=== PATIENT | male | born 1985 | race Two or more races ===

== ENCOUNTER 2016-12-17 17:05 | Emergency (ER) | payer OTHER ==
[~2016-12-17] VITALS: Ht 180.3 cm; Wt 83.1 kg
[2016-12-17 17:07] VITALS: BP 113/72
[2016-12-17] MEDS ORDERED: LIDOCAINE 1%-EPI 1:100K, 30ML ONE (17:45)
[2016-12-17] MEDS ORDERED: DIPH,PERTUSS(ACELL),TET VAC/PF 0.5 ML IM-VACC ONE ×2 (17:50→18:00)
[2016-12-17] MEDS ORDERED: LIDOCAINE 1%, 20ML SQ ONE (18:00)
[2016-12-17] MEDS ORDERED: LIDOCAINE 1%-EPI 1:100K, 20ML SQ ONE (18:00)
== END 2016-12-17 19:30 | disposition home or self-care (01) ==
LOC: ED 18:58
DX: S01.511A Laceration without foreign body of lip, initial encounter (principal); W25.XXXA Contact with sharp glass, initial encounter; Y93.89 Activity, other specified; Y92.89 Other specified places as the place of occurrence of the external cause; Y99.8 Other external cause status
CPT/HCPCS: 12011; 90715; 99284